=== PATIENT | female | born 2000 | race Caucasian/White ===

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

== ENCOUNTER 2024-01-25 12:01 | Outpatient (CLI) | payer OTHER | END 2024-01-25 12:40 | disposition home or self-care (01) | LOC: MRI 12:01 | PROVIDERS: ATTEND Internal Medicine Endocrinology, Diabetes & Metabolism | DX: R51.9 Headache, unspecified (principal); G43.C1 Periodic headache syndromes in child or adult, intractable | CPT/HCPCS: 70552 ==

== ENCOUNTER 2024-10-25 10:24 | Outpatient (CLI) | payer OTHER | END 2024-10-25 10:37 | disposition home or self-care (01) | LOC: SONOGRAMA 10:24 | PROVIDERS: ATTEND Obstetrics & Gynecology | DX: N83.201 Unspecified ovarian cyst, right side (principal); N64.4 Mastodynia ==

== ENCOUNTER → 2025-05-15 | Outpatient (CLI) | payer OTHER | END | disposition home or self-care (01) | LOC: SONOGRAMA 06:35 | PROVIDERS: ATTEND Obstetrics & Gynecology | DX: N64.4 Mastodynia (principal) ==